=== PATIENT | male | born 1955 | race African-American/Black ===

== ENCOUNTER 2018-07-06 10:56 | Inpatient (IN) | payer MEDICAID, OTHER ==
[~2018-07-06] VITALS: Ht 175.3 cm; Wt 92.1 kg
[2018-07-06] MEDS ORDERED: ACETAMINOPHEN 325MG TABLET PO STA (11:33)
[2018-07-06] MEDS ORDERED: ALBUTEROL (0.083%) 2.5MG/3ML NEB HHN STA (11:33)
[2018-07-06 12:06] LABS: HEMATOCRIT. 37.8 % (42.0-52.0); MEAN CORPUSCULAR HEMOGLOBIN 32.4 pg (28.0-32.0); MEAN CORPUSCULAR VOLUME 93.9 fL (80.0-94.0); MEAN PLATELET VOLUME 9.1 fl (7.4-10.4); PLATELET 182 x1000/uL (130-400); RED BLOOD CELL COUNT 4.02 mill/uL (4.7-6.1); RED CELL DISTRIBUTION WIDTH 12.9 % (11.6-14.6)
[2018-07-06 12:11] LABS: CHLORIDE 103 mEq/L (98-107)
[2018-07-06] MEDS ORDERED: SODIUM CHLORIDE 0.9% 1,000 ML IV ONE (12:28)
[2018-07-06 13:00] LABS: PLATELET ESTIMATE NORMAL
[2018-07-06] MEDS ORDERED: ONDANSETRON HCL 4MG/2ML INJ IV PRN (15:15)
[2018-07-06] MEDS ORDERED: IPRATROPIUM/ALBUTEROL 0.5-3(2.5)MG/3ML NEB INH PRN (15:15)
[2018-07-06] MEDS ORDERED: CLONIDINE 0.1MG TABLET PO PRN (15:15)
[2018-07-06] MEDS ORDERED: ACETAMINOPHEN 650MG SUPP PR PRN (15:15)
[2018-07-06] MEDS ORDERED: LORAZEPAM 0.5MG TABLET PO PRN (15:15)
[2018-07-06] MEDS ORDERED: GUAIFENESIN 200MG/10ML SUGAR FREE UDC PO PRN (15:15)
[2018-07-06] MEDS ORDERED: MAGNESIUM/ALUMINUM HYDROXIDE/SIMETHICONE 30ML UDC PO PRN (15:15)
[2018-07-06] MEDS ORDERED: DIPHENHYDRAMINE 50MG/ML VIAL IV PRN (15:15)
[2018-07-06] MEDS ORDERED: DOCUSATE SODIUM 100MG CAPSULE PO PRN (15:15)
[2018-07-06] MEDS ORDERED: HYDROCODONE/ACETAMINOPHEN 5/325MG TABLET PO PRN (15:15)
[2018-07-06] MEDS ORDERED: LEVOFLOXACIN 500MG PREMIX 100 ML IV NR (16:00)
[2018-07-06 17:00] VITALS: BP 143/98
[2018-07-06] MEDS: NICOTINE 7MG PATCH TD SCH (18:21)
[2018-07-06] MEDS: ACETAMINOPHEN 325MG TABLET PO PRN ×2 (18:22→23:46)
[2018-07-06 20:00] VITALS: BP 126/60
[2018-07-06] MEDS: IPRATROPIUM/ALBUTEROL 0.5-3(2.5)MG/3ML NEB INH SCH (20:25)
[2018-07-06] MEDS: ENOXAPARIN 30MG/0.3ML SYR SUBCUT SCH (21:00)
[2018-07-06] MEDS ORDERED: NA PHOS,M-B/NA PHOS,DI-BA ENEMA 118ML PR PRN (21:00)
[2018-07-06] MEDS ORDERED: VANCOMYCIN 1500MG in DEXTROSE 5% WATER 250ML IV NR (22:30)
[2018-07-06 23:46] VITALS: BP 111/63
[2018-07-07] MEDS: IPRATROPIUM/ALBUTEROL 0.5-3(2.5)MG/3ML NEB INH SCH ×2 (02:31→07:39)
[2018-07-07 04:15] VITALS: BP 117/65
[2018-07-07] MEDS ORDERED: VANCOMYCIN 1250MG in DEXTROSE 5% WATER 250ML IV SCH (06:00)
[2018-07-07 06:33] LABS: BASOPHILS % 0.6 % (0.0-2.0); HEMATOCRIT. 35.8 % (42.0-52.0); HEMOGLOBIN. 12.2 g/dL (14.0-18.0); LYMPHOCYTES % 8.9 % (20.0-50.0); MEAN CORPUSCULAR HEMOGLOBIN 32.5 pg (28.0-32.0); MEAN CORPUSCULAR VOLUME 95.5 fL (80.0-94.0); MEAN PLATELET VOLUME 8.8 fl (7.4-10.4); MONOCYTES % 8.7 % (2.0-8.0); NEUTROPHILS % 81.8 % (40.0-76.0); PLATELET 168 x1000/uL (130-400); RED BLOOD CELL COUNT 3.75 mill/uL (4.7-6.1); RED CELL DISTRIBUTION WIDTH 12.8 % (11.6-14.6)
[2018-07-07 07:01] LABS: CHLORIDE 105 mEq/L (98-107)
[2018-07-07 07:11] LABS: CREATINE KINASE MB FRACTION < 1.0 ng/mL (0.5-3.6)
[2018-07-07 07:12] LABS: LDL CHOLESTEROL 81 mg/dL (5-100)
[2018-07-07 07:13] LABS: CREATINE KINASE 248 IU/L (39-308); HDL CHOLESTEROL 64 mg/dL (40-59); T4 FREE 1.05 ng/dL (0.76-1.46)
[2018-07-07 08:01] VITALS: BP 137/64
[2018-07-07] MEDS: ENOXAPARIN 30MG/0.3ML SYR SUBCUT SCH ×2 (09:00→09:26)
[2018-07-07] MEDS ORDERED: ASPIRIN 81MG EC TABLET PO SCH (09:00)
[2018-07-07] MEDS: NICOTINE 7MG PATCH TD SCH (09:26)
[2018-07-07] MEDS ORDERED: LEVOFLOXACIN 500MG PREMIX 100 ML IV SCH ×2 (11:00→14:00)
== END 2018-07-07 11:30 | disposition left against medical advice (07) | DRG 139 ==
LOC: ER 10:56 → 5WST 12:33 → EDBEDREQ 12:34 → EDBEDREQTM 12:34 → ENRESERV 15:30 → 5WST 21:30
PROVIDERS: ADMIT Internal Medicine; ATTEND Internal Medicine
DX: J18.9 Pneumonia, unspecified organism (principal); I24.9 Acute ischemic heart disease, unspecified; D64.9 Anemia, unspecified; F17.210 Nicotine dependence, cigarettes, uncomplicated; I10 Essential (primary) hypertension; R73.9 Hyperglycemia, unspecified; Z53.21 Procedure and treatment not carried out due to patient leaving prior to being seen by health care provider
CPT/HCPCS: 36415; 71045; 80061; 82550; 82553; 83036; 83880; 84439; 84443; 84484; 87804; 93005; 93306; 96374; 99285; J1650; J1956; J3370; J7030; J7050; J7060; J7611; J7620